=== PATIENT | female | born 1950 | race Caucasian/White ===

== ENCOUNTER → 2016-06-13 | Outpatient (CLI) | payer OTHER ==
[~2016-06-13] MED LIST: ASPIR-LOW81 MG PO; CRESTOR5 MG PO; FLONASE ALLER15.8 ML; GLUCOPHAGE1000 MG PO; INVOKANA100 MG PO; LOSARTAN-HCTZ1 EACH PO; NORVASC 5 MG TAB5 MG PO; RANITIDINE HCL150 M1 PO; TOPROL XL100 MG PO; ZYLOPRIM 100 M100 MG PO
== END ==
LOC: MAMO 06-06 09:00
DX: Z12.31 Encounter for screening mammogram for malignant neoplasm of breast (principal)
CPT/HCPCS: G0202

== ENCOUNTER → 2016-06-23 | Outpatient (CLI) | payer OTHER | LOC: MAMO 08:26 | DX: R92.8 Other abnormal and inconclusive findings on diagnostic imaging of breast (principal) | CPT/HCPCS: G0206 ==

== ENCOUNTER → 2020-11-06 | Outpatient (CLI) | payer OTHER | LOC: MAMO 11:06 | DX: Z12.31 Encounter for screening mammogram for malignant neoplasm of breast (principal) | CPT/HCPCS: 77063; 77067 ==